=== PATIENT | male | born 1975 | race Two or more races ===

== ENCOUNTER 2017-09-09 12:04 | Day surgery (SDC) | payer SELFPAY ==
[~2017-09-09] VITALS: Ht 177.8 cm; Wt 92.0 kg
[~2017-09-09 12:04] MED LIST: ASPIR-LOW81 MG PO; FISH OIL 1,0001 EAC7 PO; METOPROLOL SUCC50 MG PO
[2017-09-09 13:00] LABS: HEMATOCRIT 45.6 % (38.0-50.0); MCH 29.4 PG (29.0-34.0); MCHC 34.2 G/DL (30.0-36.0); MCV 85.9 FL (86-99); MEAN PLAT.VOLUME 9.1 uM^3 (9.0-12.4); PLATELET COUNT 232 K/uL (156-360); RBC DIS.WIDTH-CV 12.8 % (11.8-14.6); RBC DIS.WIDTH-SD 39.5 % (39-53); RED BLOOD COUNT 5.31 M/uL (4.00-5.50); WHITE BLOOD COUNT 5.8 K/uL (4.1-10.2)
[2017-09-09 13:29] LABS: ANION GAP 9 MEQ/L (2-14); CHLORIDE 104 MEQ/L (99-109); GFR ESTIMATE (CALCULATED) > 59 mL/min/; GLUCOSE 101 mg/dL (70-99); POTASSIUM 3.7 MEQ/L (3.7-5.4); SAMPLE HEMOLYSIS CHECK 0; SAMPLE ICTERIC CHECK 0; SAMPLE LIPEMIA CHECK 0; SODIUM 139 MEQ/L (136-147); UREA NITROGEN (BUN) 15 mg/dL (9-23)
[2017-09-09 16:52] VITALS: BP 135/86
[2017-09-09 19:51] VITALS: BP 130/79
[2017-09-09 23:05] VITALS: BP 126/71
[2017-09-10 03:45] VITALS: BP 112/65
[2017-09-10 05:49] LABS: EOSINOPHIL (%) 2.3 % (0-5); EOSINOPHIL COUNT 0.2 K/uL (0-0.3); HEMATOCRIT 45.1 % (38.0-50.0); IMMATURE GRANULOCYTE (%) 0.3 % (0.0-0.7); INSTRUMENT ABS NEUTROPHIL CT 3.7 K/uL; LYMPHOCYTE COUNT 2.2 K/uL (1.0-2.8); MCH 28.3 PG (29.0-34.0); MCV 85.7 FL (86-99); MEAN PLAT.VOLUME 9.1 uM^3 (9.0-12.4); MONOCYTE (%) 10.5 % (3-12); MONOCYTE COUNT 0.7 K/uL (0-0.8); NEUTROPHIL (%) 54.3 % (45-76); NEUTROPHIL COUNT 3.7 K/uL (1.8-6.4); PLATELET COUNT 227 K/uL (156-360); RBC DIS.WIDTH-CV 12.6 % (11.8-14.6); RBC DIS.WIDTH-SD 39.1 % (39-53); RED BLOOD COUNT 5.26 M/uL (4.00-5.50); WHITE BLOOD COUNT 6.9 K/uL (4.1-10.2)
[2017-09-10 06:10] LABS: ANION GAP 11 MEQ/L (2-14); CHLORIDE 103 MEQ/L (99-109); GFR ESTIMATE (CALCULATED) > 59 mL/min/; GLUCOSE 90 mg/dL (70-99); POTASSIUM 3.9 MEQ/L (3.7-5.4); SAMPLE HEMOLYSIS CHECK 0; SAMPLE ICTERIC CHECK 0; SAMPLE LIPEMIA CHECK 0; SODIUM 139 MEQ/L (136-147); UREA NITROGEN (BUN) 14 mg/dL (9-23)
[2017-09-10 07:15] VITALS: BP 138/63
[2017-09-10 11:23] VITALS: BP 119/63
[2017-09-10 15:00] VITALS: BP 148/77
[2017-09-10] MEDS ORDERED: ASPIRIN EC325 MG PO (16:04)
[2017-09-10] MEDS ORDERED: CLOPIDOGREL75 MG PO (16:04)
[2017-09-10] MEDS ORDERED: PRAVASTATIN SOD80 MG PO (16:04)
[2017-09-10] MEDS ORDERED: LOSARTAN POTASS25 MG PO (16:04)
== END 2017-09-10 16:23 | disposition home or self-care (01) ==
LOC: CATH 12:04 → 2SOUTH 14:15 → 4EAST 14:15 → 2SOUTH 14:15 → ENRESERV 14:55 → 4EAST 16:37
PROVIDERS: Internal Medicine Cardiovascular Disease
DX: I25.10 Atherosclerotic heart disease of native coronary artery without angina pectoris (principal); I10 Essential (primary) hypertension; E78.5 Hyperlipidemia, unspecified; Z82.49 Family history of ischemic heart disease and other diseases of the circulatory system; Z79.82 Long term (current) use of aspirin; Z79.02 Long term (current) use of antithrombotics/antiplatelets
CPT/HCPCS: 80048; 85025; 85027; 85347; 93005; C1725; C1760; C1769; C1874; C1887; C1894; G0378; J1200; J1644; J2250; J2405; J3010; J7030